=== PATIENT | female | born 1985 | race Caucasian/White ===

== ENCOUNTER 2019-08-09 21:40 | Observation (INO) | payer MEDICAID, OTHER ==
[~2019-08-09] VITALS: Ht 172.7 cm; Wt 100.0 kg
[~2019-08-09 21:40] MED LIST: PREN1TAB60 PO
[2019-08-09] MEDS ORDERED: OXYcodone/APAP 5/325MG TABLET ONE (22:09)
[2019-08-09 22:28] LABS: MICROSCOPIC AUTO
[2019-08-09 22:30] VITALS: BP 126/74
[2019-08-09] MEDS ORDERED: OXYcodone/APAP 5/325MG TABLET PO PRN (22:30)
[2019-08-09 22:41] LABS: BASOPHILS # (AUTO) 0.07 x10^3/uL (0-0.1); BASOPHILS % (AUTO) 1 % (0-1); EOSINOPHILS # (AUTO) 0.15 x10^3/uL (0-0.4); EOSINOPHILS % (AUTO) 2 % (1-7); LYMPHOCYTES # (AUTO) 2.08 x10^3/uL (1-3.4); LYMPHOCYTES % (AUTO) 20 % (22-44); MD NO; MEAN CORPUSCULAR HEMOGLOBIN 30.4 pg (27.0-34.8); MEAN CORPUSCULAR HGB CONC 33.3 g/dL (32.4-35.8); MEAN CORPUSCULAR VOLUME 91.2 fL (80-100); MEAN PLATELET VOLUME 8.2 fL (7.4-10.4); MONOCYTES # (AUTO) 0.69 x10^3/uL (0.2-0.8); MONOCYTES % (AUTO) 7 % (2-9); NEUTROPHILS # (AUTO) 7.43 x10^3/uL (1.8-6.8); NEUTROPHILS % (AUTO) 71 % (42-75); PLATELET COUNT 196 x10^3/uL (130-400); RED CELL DISTRIBUTION WIDTH 14.2 % (9.6-15.2)
[2019-08-09 22:42] LABS: PROTEIN/CREATININE RATIO,URINE < 98 (0-200); TOTAL PROTEIN,URINE RANDOM < 5 mg/dL (0-12)
[2019-08-09 22:52] LABS: ALANINE AMINOTRANSFERASE 14 U/L (12-78); ALBUMIN 2.4 g/dL (3.4-5.0); ANION GAP 7 mmol/L (5-15); CALCIUM 8.6 mg/dL (8.5-10.1); CHLORIDE 111 mmol/L (98-107); CREATININE 0.53 mg/dL (0.55-1.02)
[2019-08-09 22:54] LABS: ALKALINE PHOSPHATASE 78 U/L (45-117); BILIRUBIN,TOTAL 0.4 mg/dL (0.2-1.0); TOTAL PROTEIN 6.7 g/dL (6.4-8.2)
[2019-08-10] MEDS ORDERED: BUTALB/APAP/CAFFEINE 50MG/325MG/40MG PO ONE
[2019-08-10] MEDS ORDERED: CALCIUM CARBONATE 500 MG TAB.CHEW ONE (05:48)
[2019-08-10] MEDS ORDERED: FERROUS GLUCONATE 324 MG TABLET PO SCH (08:00)
[2019-08-10] MEDS ORDERED: FERROUS GLUCONATE 324 MG TABLET ONE (08:55)
[2019-08-10] MEDS ORDERED: BUTALB/APAP/CAFFEINE 50MG/325MG/40MG PO PRN (09:00)
[2019-08-10 09:30] VITALS: BP 118/71
== END 2019-08-10 12:17 | disposition home or self-care (01) ==
LOC: LDIP 21:40 → INTOOBSV 21:40
PROVIDERS: ADMIT Obstetrics & Gynecology Maternal & Fetal Medicine; ATTEND Obstetrics & Gynecology Maternal & Fetal Medicine
DX: O99.353 Diseases of the nervous system complicating pregnancy, third trimester (principal); O99.513 Diseases of the respiratory system complicating pregnancy, third trimester; G43.909 Migraine, unspecified, not intractable, without status migrainosus; J45.909 Unspecified asthma, uncomplicated; Z3A.31 31 weeks gestation of pregnancy
CPT/HCPCS: 36415; 80053; 81001; 82570; 84156; 85025; G0378

== ENCOUNTER 2019-08-20 00:08 | Inpatient (IN) | payer MEDICAID, OTHER ==
[~2019-08-20] VITALS: Ht 172.7 cm; Wt 104.5 kg
[2019-08-20] MEDS ORDERED: MAGNESIUM SULF. PMX 20GM/500ML 500 ML IV ONE ×4 (00:10→21:58)
[2019-08-20] MEDS ORDERED: MAGNESIUM SULF. PMX 20GM/500ML 500 ML IV SCH (00:12)
[2019-08-20] MEDS: LACTATED RINGERS 1,000 ML IV PRN ×2 (00:18→14:11)
[2019-08-20] MEDS ORDERED: FENTANYL PF 100 MCG/2ML ONE ×2 (00:21→05:08)
[2019-08-20] MEDS: FENTANYL PF 100 MCG/2ML IVPush PRN ×2 (00:26→05:11)
[2019-08-20 00:27] VITALS: BP 132/70
[2019-08-20] MEDS ORDERED: PLEASE ENTER HEIGHT AND WEIGHT MC SCH (00:30)
[2019-08-20] MEDS ORDERED: FENTANYL PF 100 MCG/2ML IV PRN (00:30)
[2019-08-20 00:34] LABS: BASOPHILS # (AUTO) 0.04 x10^3/uL (0-0.1); BASOPHILS % (AUTO) 0 % (0-1); EOSINOPHILS # (AUTO) 0.18 x10^3/uL (0-0.4); EOSINOPHILS % (AUTO) 1 % (1-7); LYMPHOCYTES # (AUTO) 1.78 x10^3/uL (1-3.4); LYMPHOCYTES % (AUTO) 13 % (22-44); MD NO; MEAN CORPUSCULAR HEMOGLOBIN 29.9 pg (27.0-34.8); MEAN CORPUSCULAR HGB CONC 33.6 g/dL (32.4-35.8); MEAN CORPUSCULAR VOLUME 89.1 fL (80-100); MEAN PLATELET VOLUME 8.3 fL (7.4-10.4); MONOCYTES # (AUTO) 0.76 x10^3/uL (0.2-0.8); MONOCYTES % (AUTO) 5 % (2-9); NEUTROPHILS # (AUTO) 11.39 x10^3/uL (1.8-6.8); NEUTROPHILS % (AUTO) 81 % (42-75); PLATELET COUNT 220 x10^3/uL (130-400); RED BLOOD COUNT 3.67 x10^6/uL (3.82-5.3)
[2019-08-20 00:46] LABS: ALANINE AMINOTRANSFERASE 19 U/L (12-78); ALBUMIN 2.6 g/dL (3.4-5.0); ANION GAP 9 mmol/L (5-15); CHLORIDE 109 mmol/L (98-107); CREATININE 0.62 mg/dL (0.55-1.02)
[2019-08-20 00:49] LABS: ALKALINE PHOSPHATASE 89 U/L (45-117); BILIRUBIN,TOTAL 0.4 mg/dL (0.2-1.0); TOTAL PROTEIN 7.2 g/dL (6.4-8.2)
[2019-08-20] MEDS ORDERED: BETAMETHASONE 6 MG/ML, 5ML IM ONE (01:40)
[2019-08-20] MEDS ORDERED: ACETAMINOPHEN 325 MG TABLET ONE ×2 (01:40→19:57)
[2019-08-20] MEDS: BETAMETHASONE 6 MG/ML, 5ML IM SCH (01:48)
[2019-08-20] MEDS: ACETAMINOPHEN 325 MG TABLET PO PRN ×2 (01:48→19:58)
[2019-08-20] MEDS: MAGNESIUM SULF. PMX 20GM/500ML 500 ML IV SCH ×4 (01:54→22:00)
[2019-08-20] MEDS ORDERED: PENICILLIN GK 5,000,000 UNITS in DEXTROSE 5% 100 ML IVPB ONE (02:00)
[2019-08-20] MEDS ORDERED: MAGNESIUM SULFATE PMX 4GM/100M 100 ML IVPB ONE (02:00)
[2019-08-20] MEDS ORDERED: CALCIUM CARBONATE 500 MG TABLET PO SCH (02:17)
[2019-08-20] MEDS ORDERED: CALCIUM CARBONATE 500 MG TAB.CHEW ONE ×2 (02:18→14:21)
[2019-08-20] MEDS ORDERED: CALCIUM CARBONATE 500 MG TAB.CHEW PO PRN (03:00)
[2019-08-20] MEDS ORDERED: ONDANSETRON 2MG/ML, 2ML ONE (03:32)
[2019-08-20] MEDS ORDERED: ONDANSETRON 2MG/ML, 2ML IVPush PRN (03:44)
[2019-08-20] MEDS ORDERED: NEWBORN KIT ONE (04:50)
[2019-08-20] MEDS: PENICILLIN GK 2,500,000 UNITS in DEXTROSE 5% 100 ML IVPB SCH ×5 (06:00→21:56)
[2019-08-20] MEDS ORDERED: OXYTOCIN 30U/ 0.9% NaCL 500ML 500 ML IV ONE (06:33)
[2019-08-20] MEDS ORDERED: OXYTOCIN 30U/ 0.9% NaCL 500ML 500 ML IV PRN (06:33)
[2019-08-20] MEDS: D5%-LACTATED RINGERS 1,000 ML IV SCH ×3 (06:33→22:33)
[2019-08-20] MEDS ORDERED: METOCLOPRAMIDE 5 MG/ML, 2ML ONE (06:41)
[2019-08-20] MEDS ORDERED: SODIUM CITRATE/CITRIC ACID 30 ML UDC ONE (06:42)
[2019-08-20] MEDS ORDERED: TERBUTALINE 1 MG/ML, 1ML IVPush PRN (07:00)
[2019-08-20] MEDS ORDERED: TERBUTALINE 1 MG/ML, 1ML SQ PRN (07:00)
[2019-08-20 07:50] LABS: BASOPHILS % (AUTO) 0 % (0-1); EOSINOPHILS # (AUTO) 0.02 x10^3/uL (0-0.4); EOSINOPHILS % (AUTO) 0 % (1-7); LYMPHOCYTES # (AUTO) 1.13 x10^3/uL (1-3.4); LYMPHOCYTES % (AUTO) 8 % (22-44); MD NO; MEAN CORPUSCULAR HEMOGLOBIN 29.3 pg (27.0-34.8); MEAN CORPUSCULAR HGB CONC 32.6 g/dL (32.4-35.8); MEAN CORPUSCULAR VOLUME 89.9 fL (80-100); MEAN PLATELET VOLUME 8.2 fL (7.4-10.4); MONOCYTES # (AUTO) 0.07 x10^3/uL (0.2-0.8); MONOCYTES % (AUTO) 1 % (2-9); NEUTROPHILS # (AUTO) 12.98 x10^3/uL (1.8-6.8); NEUTROPHILS % (AUTO) 91 % (42-75); PLATELET COUNT 203 x10^3/uL (130-400); RED BLOOD COUNT 3.51 x10^6/uL (3.82-5.3); RED CELL DISTRIBUTION WIDTH 14.8 % (9.6-15.2)
[2019-08-20] MEDS ORDERED: HYDROXYZINE PAMOATE 50MG CAP PO/NG ONE (08:00)
[2019-08-20 20:20] LABS: MICROSCOPIC AUTO
[2019-08-20 20:22] LABS: CULTURE INDICATED? NO
[2019-08-20 20:30] LABS: AMPHETAMINE SCREEN, URINE Negative (Negative); BARBITURATE SCREEN, URINE Negative (Negative); BENZODIAZEPINE SCREEN, URINE Negative (Negative); CANNABINOID SCREEN, URINE Negative (Negative); COCAINE SCREEN, URINE Negative (Negative); METHADONE SCREEN, URINE Negative (Negative); OPIATE SCREEN, URINE Negative (Negative); PROTEIN/CREATININE RATIO,URINE 730 (0-200); TOTAL PROTEIN,URINE RANDOM 23 mg/dL (0-12)
[2019-08-21] MEDS: BETAMETHASONE 6 MG/ML, 5ML IM SCH (01:36)
[2019-08-21] MEDS: PENICILLIN GK 2,500,000 UNITS in DEXTROSE 5% 100 ML IVPB SCH ×5 (01:39→17:56)
[2019-08-21] MEDS ORDERED: MAGNESIUM SULF. PMX 20GM/500ML 500 ML IV ONE ×3 (04:41→19:42)
[2019-08-21] MEDS: MAGNESIUM SULF. PMX 20GM/500ML 500 ML IV SCH ×3 (04:43→19:45)
[2019-08-21] MEDS: LACTATED RINGERS 1,000 ML IV PRN (12:13)
[2019-08-21] MEDS ORDERED: CALCIUM CARBONATE 500 MG TAB.CHEW ONE ×3 (13:49→23:02)
[2019-08-21] MEDS: CALCIUM CARBONATE 500 MG TAB.CHEW PO PRN ×2 (13:52→23:03)
[2019-08-21 19:47] VITALS: BP 112/64
[2019-08-22] MEDS ORDERED: CALCIUM CARBONATE 500 MG TAB.CHEW ONE (00:57)
[2019-08-22] MEDS: CALCIUM CARBONATE 500 MG TAB.CHEW PO PRN (01:03)
[2019-08-22 11:15] VITALS: BP 111/58
== END 2019-08-22 13:09 | disposition left against medical advice (07) | DRG 563 ==
LOC: LDIP 00:08
PROVIDERS: ADMIT Obstetrics & Gynecology Maternal & Fetal Medicine; ATTEND Obstetrics & Gynecology Maternal & Fetal Medicine
PROC: 0T9B70Z Drainage of Bladder with Drainage Device, Via Natural or Artificial Opening (ICD-10-PCS; principal; 2019-08-20)
DX: O60.03 Preterm labor without delivery, third trimester (principal); O12.13 Gestational proteinuria, third trimester; J45.909 Unspecified asthma, uncomplicated; Z53.29 Procedure and treatment not carried out because of patient's decision for other reasons; O99.513 Diseases of the respiratory system complicating pregnancy, third trimester; Z3A.32 32 weeks gestation of pregnancy
CPT/HCPCS: 36415; 80053; 80307; 81001; 82570; 83735; 84112; 84156; 85025; 86850; 86900; 86923; 89060; G0378; J0702; J2405; J2540; J3010; J3475; J7120; Q0114